=== PATIENT | male | born 1980 | race Hispanic/Latino ===

== ENCOUNTER 2017-04-01 21:30 | Emergency (ER) | payer BC, SELFPAY ==
[~2017-04-01 21:30] MED LIST: Sodium Chloride 0.9% 1,000 ML BAG ONE
[2017-04-01] MEDS ORDERED: Ketorolac Tromethamine 30 MG/ML VIAL ONE (22:01)
[2017-04-01] MEDS ORDERED: Ondansetron HCl/PF 4 MG/2 ML Vial ONE (22:01)
[2017-04-01 22:05] LABS: #Eosinphils 0.1 thou/uL (0.0-0.7); Hemoglobin 14.1 g/dL (14.0-18.0); RBC Distribution Width 13.5 % (11.5-14.5)
[2017-04-01 22:16] LABS: #Basophils 0.2 thou/uL (0.0-0.2); #Lymphocytes 4.6 thou/uL (1.20-3.40); #Monocytes 1.1 thou/uL (0.11-0.59); #Neutrophils 4.9 thou/uL (1.40-6.50); %Basophils 1.4 % (0.0-1.0); %Eosinophils 0.8 % (0.0-10.0); %Monocytes 9.8 % (0.0-10.0); Mean Corpuscular HGB CONC 32.2 g/dL (32.0-36.0); Mean Corpuscular Hemoglobin 27.2 pg (27.0-31.0); Mean Corpuscular Volume 84.6 fl (80.0-94.0); Mean Platelet Volume 7.2 fL (7.4-10.4); Platelet Count 333 thou/uL (130-400); Red Blood Cell (RBC) Count 5.17 mill/uL (4.70-6.10); White Blood Cell (WBC) Count 10.8 thou/uL (4.8-10.8)
--- NOTE | 2017-04-01 22:25 | RAD ---
UPRIGHT PORTABLE CHEST ONE VIEW: History: 36-year-old male with history of snake bite. FINDINGS: Large body habitus somewhat lower the sensitivity of this study. Heart size is within normal limits given inspiration. The lungs are clear. No confluent pneumonia, overt edema or pleural effusion. IMPRESSION: Suboptimal inspiratory effort. Large body habitus. No significant acute intrathoracic disease. POS: [facility]
[2017-04-01 22:28] LABS: CKMB 5.8 ng/mL (0-6.6)
[2017-04-01 22:39] LABS: Platelet Count 333 thou/uL (130-400)
[2017-04-01 22:52] LABS: PTT 28.5 SEC (22.9-36.1)
[2017-04-01 22:58] LABS: Fibrinogen 402 mg/dL (253-463); PTT 28.5 SEC (22.9-36.1)
[2017-04-01 23:07] LABS: D-Dimer Test 0.27 *mcg/mL (0.27-0.43)
[2017-04-02 00:05] LABS: ALT (SGPT) 66 U/L (8-55); AST (SGOT) 44 U/L (5-34); Albumin 4.2 g/dL (3.5-5.0); Alkaline Phosphatase 98 U/L (40-150); Anion Gap 17 mmol/L (10-20); BUN (Urea Nitrogen) 15 mg/dL (8.9-20.6); Bilirubin, Total 0.3 mg/dL (0.2-1.2); CK (CPK) 1198 U/L (30-200); Calc. Creatinine Clearance 0 mL/min (70-130); Calcium 9.3 mg/dL (7.8-10.44); Carbon Dioxide 23 mmol/L (22-29); Chloride 107 mmol/L (98-107); Estimated GFR-MDRD Greater than 90; Globulin 2.8 g/dL (2.4-3.5); Glucose 89 mg/dL (70-105); Potassium 3.4 mmol/L (3.5-5.1); Sodium 144 mmol/L (136-145)
[2017-04-02 04:14] LABS: #Basophils 0.1 thou/uL (0.0-0.2); #Eosinphils 0.1 thou/uL (0.0-0.7); #Lymphocytes 2.2 thou/uL (1.20-3.40); #Monocytes 0.6 thou/uL (0.11-0.59); #Neutrophils 4.5 thou/uL (1.40-6.50); %Eosinophils 1.2 % (0.0-10.0); %Lymphocytes 28.8 % (21.0-51.0); %Monocytes 8.5 % (0.0-10.0); %Neutrophils 60.5 % (42.0-75.0); Hemoglobin 13.2 g/dL (14.0-18.0); Mean Corpuscular HGB CONC 32.5 g/dL (32.0-36.0); Mean Corpuscular Hemoglobin 27.5 pg (27.0-31.0); Mean Corpuscular Volume 84.7 fl (80.0-94.0); Mean Platelet Volume 6.7 fL (7.4-10.4); Platelet Count 276 thou/uL (130-400); RBC Distribution Width 13.4 % (11.5-14.5); Red Blood Cell (RBC) Count 4.81 mill/uL (4.70-6.10); White Blood Cell (WBC) Count 7.4 thou/uL (4.8-10.8)
[2017-04-02 04:29] LABS: ALT (SGPT) 52 U/L (8-55); AST (SGOT) 35 U/L (5-34); Albumin 3.3 g/dL (3.5-5.0); Alkaline Phosphatase 74 U/L (40-150); Anion Gap 13 mmol/L (10-20); BUN (Urea Nitrogen) 15 mg/dL (8.9-20.6); Bilirubin, Total 0.3 mg/dL (0.2-1.2); CK (CPK) 856 U/L (30-200); Calc. Creatinine Clearance 0 mL/min (70-130); Calcium 8.2 mg/dL (7.8-10.44); Carbon Dioxide 25 mmol/L (22-29); Chloride 109 mmol/L (98-107); Estimated GFR-MDRD Greater than 90; Globulin 2.5 g/dL (2.4-3.5); Glucose 91 mg/dL (70-105); Potassium 3.9 mmol/L (3.5-5.1); Protein, Total 5.8 g/dL (6.0-8.3); Sodium 143 mmol/L (136-145)
[2017-04-02 04:30] LABS: Platelet Count 276 thou/uL (130-400)
[2017-04-02 04:33] LABS: CKMB 4.7 ng/mL (0-6.6)
[2017-04-02 04:37] LABS: Fibrinogen 340 mg/dL (253-463)
[2017-04-02 04:38] LABS: INR-International Normal Ratio 1.1; PTT 29.8 SEC (22.9-36.1)
[2017-04-02 04:39] LABS: D-Dimer Test 0.27 *mcg/mL (0.27-0.43)
== END 2017-04-02 06:00 | disposition short-term general hospital (02) ==
LOC: MADERS 21:30
DX: T63.001A Toxic effect of unspecified snake venom, accidental (unintentional), initial encounter (principal)
CPT/HCPCS: 36415; 71010; 80053; 82553; 83605; 83735; 83880; 84484; 85025; 85049; 85300; 85362; 85379; 85384; 85610; 85730; 86850; 86900; 86901; 93005; 94760; 96361; 96374; 96375; 96376; J1885; J2270; J2405; J7050

== ENCOUNTER 2018-02-24 09:10 | Emergency (ER) | payer OTHER, SELFPAY ==
[2018-02-24] MEDS ORDERED: Lidocaine 1% w/Epinephrine 1:100K 30 ML VIAL ONE (10:43)
== END 2018-02-24 12:05 | disposition home or self-care (01) ==
LOC: MADERS 09:10
DX: L91.8 Other hypertrophic disorders of the skin (principal)
CPT/HCPCS: 10060; J2001

== ENCOUNTER 2018-02-24 21:47 | Emergency (ER) | payer SELFPAY ==
[2018-02-24] MEDS ORDERED: HYDROcodone/Acetaminophen 5/325 mg Tablet ONE (22:26)
== END 2018-02-24 22:33 | disposition home or self-care (01) ==
LOC: MADERS 21:47
DX: L91.8 Other hypertrophic disorders of the skin (principal)
CPT/HCPCS: 99283